=== PATIENT | male | born 1995 | race Caucasian/White ===

== ENCOUNTER 2018-08-18 12:29 | Emergency (ER) | payer BC, OTHER ==
[2018-08-18 14:22] LABS: Amphetamine Screen,Urine Not Detected (NotDetected); Barbiturate Screen,Urine Not Detected (NotDetected); Benzodiazepines Screen,Urine Not Detected (NotDetected); Cocaine Screen,Urine Not Detected (NotDetected); Methadone Screen, Urine Not Detected (NotDetected); Opiate Screen,Urine Not Detected (NotDetected); Oxycodone Screen, Urine Not Detected (NotDetected); Phencyclidine Screen,Urine Not Detected (NotDetected); Tricyclic Antidepressant,Urine Not Detected (NotDetected); Urn Cannabinoid Scrn Detected (NotDetected)
--- NOTE | 2018-08-18 14:45 | ED ---
Psych HPI - General Chief Complaint: Psychiatric Symptoms Stated Complaint: EPS eval Time Seen by Provider: 08/18/18 13:42 Source: patient, RN notes reviewed, old records reviewed Mode of arrival: ambulatory - History of Present Illness Initial Comments: Patient is a 23-year-old male presents raise from stable chief complaint of manic episodes. He has been diagnosed bipolar disorder approximately 7 years ago. He reports that at that time he was on multiple medications and subsequently gained weight. Patient states that he took himself off his medications and hit his been managing his bipolar on his own. He does not see a counselor or psychiatrist. He reports his bipolar disorder is now affecting his life. Patient states that he's been having hard time holding a job as well as holding onto relationships. Patient states that he has a fluctuant moods. He reports as of lately he has been more manic. Poor sleeping. He is here with his mother and his grandmother. He denies any suicidal or homicidal ideations. - Related Data Home Medications Medication Instructions Recorded Confirmed No Known Home Medications 08/18/18 08/18/18 Allergies Allergy/AdvReac Type Severity Reaction Status Date / Time No Known Allergies Allergy Verified 08/18/18 13:59 Review of Systems ROS Statement: Those systems with pertinent positive or pertinent negative responses have been documented in the HPI. ROS Other: All systems not noted in ROS Statement are negative. Past Medical History Additional Past Medical History / Comment(s): insomnia, seasonal allergies History of Any Multi-Drug Resistant Organisms: None Reported Past Surgical History: No Surgical Hx Reported Past Psychological History: Anxiety, Bipolar Smoking Status: Current every day smoker Past Alcohol Use History: Occasional Past Drug Use History: Marijuana General Exam - General Exam Comments Initial Comments: This is a 23-year-old male. Alert and oriented. Patient appears in no acute distress. Limitations: no limitations General appearance: alert, in no apparent distress Head exam: Present: atraumatic, normocephalic, normal inspection Eye exam: Present: normal appearance ENT exam: Present: normal exam, mucous membranes moist Neck exam: Present: normal inspection. Absent: tenderness, meningismus, lymphadenopathy Respiratory exam: Present: normal lung sounds bilaterally. Absent: respiratory distress, wheezes, rales, rhonchi, stridor Cardiovascular Exam: Present: regular rate, normal rhythm, normal heart sounds. Absent: systolic murmur, diastolic murmur, rubs, gallop, clicks GI/Abdominal exam: Present: soft, normal bowel sounds. Absent: distended, tenderness, guarding, rebound, rigid Extremities exam: Present: normal inspection, full ROM, normal capillary refill. Absent: tenderness, pedal edema, joint swelling, calf tenderness Back exam: Present: normal inspection Neurological exam: Present: alert, oriented X3, CN II-XII intact Psychiatric exam: Present: normal mood, manic (Patient is manic, pacing the room.). Absent: normal affect, suicidal ideation Skin exam: Present: warm, dry, intact, normal color. Absent: rash Course Vital Signs 08/18/18 08/18/18 12:57 17:51 Temperature 99.0 F 97 F L Pulse Rate 81 54 L Respiratory 20 19 Rate Blood Pressure 160/89 147/89 O2 Sat by Pulse 99 93 L Oximetry Medical Decision Making - Medical Decision Making 4-year-old male history of bipolar disorder presents emergency murmurs a stating he has to be on medication and following up with psychiatrist. Patient had an extensive stay in the emergency department. Did show some manic tendencies. Pacing around the room. Hyperverbal. Patient this time has no suicidal ideation. Patient is very by EPS. They give the Patient outpatient referrals for [facility]. Patient will be discharged at this time will crisis unit was be following up the Patient. Patient and patient's family agree to treatment plan will comply. Return parameters were discussed. - Lab Data Lab Results 08/18/18 Range/Units 13:53 Urine Opiates Screen Not Detected (NotDetected) Ur Oxycodone Screen Not Detected (NotDetected) Urine Methadone Screen Not Detected (NotDetected) Ur Propoxyphene Screen Not Detected (NotDetected) Ur Barbiturates Screen Not Detected (NotDetected) U Tricyclic Antidepress Not Detected (NotDetected) Ur Phencyclidine Scrn Not Detected (NotDetected) Ur Amphetamines Screen Not Detected (NotDetected) U Methamphetamines Scrn Not Detected (NotDetected) U Benzodiazepines Scrn Not Detected (NotDetected) Urine Cocaine Screen Not Detected (NotDetected) U Marijuana (THC) Screen Detected H (NotDetected) Disposition Clinical Impression: Bipolar disorder Disposition: HOME SELF-CARE Condition: Good Instructions: Bipolar Disorder (ED) Additional Instructions: Patient advised to follow up with [facility] and access line. Mobile crisis unit will be following up with you tomorrow. Return to emergency department if any alarming signs or symptoms occur. Is patient prescribed a controlled substance at d/c from ED?: No Referrals: Eitan Campos MD [Primary Care Provider] - 1-2 days Time of Disposition: 17:47
[2018-08-18 17:52] VITALS: BP 147/89; PULSE 54; RESP 19; TEMP 97
== END 2018-08-18 17:52 | disposition home or self-care (01) ==
LOC: EC 12:29
DX: F31.9 Bipolar disorder, unspecified (principal); F17.200 Nicotine dependence, unspecified, uncomplicated
CPT/HCPCS: 80306; 82075; 99284

== ENCOUNTER 2019-06-03 19:01 | Emergency (ER) | payer OTHER ==
[2019-06-03] MEDS ORDERED: DIPH,PERTUS(ACELL)TETVAC-LF 0.5 ML VIAL IM ONE (19:12)
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
[2019-06-03 19:25] VITALS: RESP 16
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
[2019-06-03] MEDS ORDERED: LIDOCAINE 1%-EPI 1:100,000 20 ML VIAL SQ STA (19:48)
[2019-06-03] MEDS ORDERED: ALPRAZolam 1 MG TAB PO STA (19:55)
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
[2019-06-03 22:25] VITALS: BP 138/79; PULSE 60; TEMP 98.4
== END 2019-06-03 22:19 | disposition home or self-care (01) ==
LOC: EC 19:01
DX: S01.112A Laceration without foreign body of left eyelid and periocular area, initial encounter (principal); F17.200 Nicotine dependence, unspecified, uncomplicated; Z23 Encounter for immunization; V89.2XXA Person injured in unspecified motor-vehicle accident, traffic, initial encounter; Y92.410 Unspecified street and highway as the place of occurrence of the external cause
CPT/HCPCS: 12011; 70450; 70486; 71045; 72125; 72170; 90471; 90715; 99284

== ENCOUNTER 2019-06-07 16:15 | Emergency (ER) | payer OTHER ==
[2019-06-07 16:23] VITALS: BP 153/80; PULSE 64; RESP 18; TEMP 98.7
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
== END 2019-06-07 17:12 | disposition home or self-care (01) ==
LOC: EC 16:15
DX: S05.12XD Contusion of eyeball and orbital tissues, left eye, subsequent encounter (principal); S06.0X9D Concussion with loss of consciousness of unspecified duration, subsequent encounter; F17.200 Nicotine dependence, unspecified, uncomplicated; V49.9XXD Car occupant (driver) (passenger) injured in unspecified traffic accident, subsequent encounter
CPT/HCPCS: 99283

== ENCOUNTER 2020-04-25 02:02 | Emergency (ER) | payer OTHER ==
[2020-04-25 02:15] VITALS: BP 153/91; PULSE 59; RESP 18; TEMP 99.4
[2020-04-25] MEDS ORDERED: IBUPROFEN 600 MG STARTER PACK 4 TAB BTL PO STA (02:33)
[2020-04-25] MEDS ORDERED: IBUPROFEN 800 MG TAB PO STA (02:33)
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
--- NOTE | 2020-04-25 02:48 | XR ---
EXAMINATION TYPE: XR chest 2V DATE OF EXAM: 04/25/2020 COMPARISON: 06/03/2019 HISTORY: Chest pain TECHNIQUE: FINDINGS: Heart and mediastinum are normal. Lungs are clear. Diaphragm is normal. Bony thorax appears normal. IMPRESSION: Normal chest.
--- NOTE | 2020-04-25 02:51 | XR ---
EXAMINATION TYPE: XR forearm LT DATE OF EXAM: 04/25/2020 COMPARISON: NONE HISTORY: Left arm pain TECHNIQUE: 2 views FINDINGS: Radius and ulna appear intact. Carpal bones are intact. Elbow joint appears normal. IMPRESSION: Normal left forearm exam.
== END 2020-04-25 03:06 | disposition home or self-care (01) ==
LOC: EC 02:02
DX: S40.022A Contusion of left upper arm, initial encounter (principal); R00.2 Palpitations; F17.200 Nicotine dependence, unspecified, uncomplicated; Y04.0XXA Assault by unarmed brawl or fight, initial encounter
CPT/HCPCS: 71046; 99285

== ENCOUNTER 2022-11-07 08:54 | Emergency (ER) | payer BC, OTHER ==
--- NOTE | 2022-11-07 09:12 | ED ---
General Adult HPI - General Stated complaint: rt shoulder injury - History of Present Illness Initial comments: 27 year old male seen for advanced triage purposes: Patient states he was at the gym and injured his shoulder last night. He believes he dislocated it as he has a history of shoulder dislocation. He states someone at the gym was able to reduce it and it popped back into place. It hurts to lift his arm. - Related Data Home Medications Medication Instructions Recorded Confirmed No Known Home Medications 08/18/18 06/03/19 Allergies Allergy/AdvReac Type Severity Reaction Status Date / Time No Known Allergies Allergy Verified 11/07/22 09:10 Review of Systems ROS Statement: Those systems with pertinent positive or pertinent negative responses have been documented in the HPI. ROS Other: All systems not noted in ROS Statement are negative. Past Medical History Additional Past Medical History / Comment(s): insomnia, seasonal allergies History of Any Multi-Drug Resistant Organisms: None Reported Past Surgical History: No Surgical Hx Reported Past Psychological History: Anxiety, Bipolar Past Alcohol Use History: Occasional Past Drug Use History: Marijuana Course Vital Signs 11/07/22 09:10 Temperature 98 F Pulse Rate 81 Respiratory 16 Rate Blood Pressure 169/99 O2 Sat by Pulse 99 Oximetry Disposition Clinical Impression: History of closed shoulder dislocation Disposition: HOME SELF-CARE Condition: Good Instructions (If sedation given, give patient instructions): Shoulder Dislocation (ED) Additional Instructions: Take Motrin and tylenol for pain. Follow up with orthopedics by calling Wednesday for an appointment. Return to the ER for any worsening symptoms. Is patient prescribed a controlled substance at d/c from ED?: No Referrals: Slim Dickson MD [STAFF PHYSICIAN] - 1-2 days Time of Disposition: 09:45
[2022-11-07 09:13] VITALS: BP 169/99; PULSE 81; RESP 16; TEMP 98
--- NOTE | 2022-11-07 09:33 | XR ---
EXAMINATION TYPE: XR shoulder complete RT DATE OF EXAM: 11/07/2022 CLINICAL HISTORY: Injury with pain. TECHNIQUE: Three views of the right shoulder are obtained. COMPARISON: None. FINDINGS: There is no acute fracture/dislocation evident in the right shoulder. The acromioclavicul ar and glenohumeral joint spaces appear within normal limits. The visualized ribs are intact and unr emarkable. IMPRESSION: There is no acute fracture or dislocation in the right shoulder.
--- NOTE | 2022-11-07 09:56 | ED ---
General Adult HPI - General Chief complaint: Extremity Injury, Upper Stated complaint: rt shoulder injury Time Seen by Provider: 11/07/22 09:38 Source: patient, RN notes reviewed Mode of arrival: ambulatory Limitations: no limitations - History of Present Illness Initial comments: Patient states he was at the gym and injured his shoulder last night. He believes he dislocated it as he has a history of shoulder dislocation. He states someone at the gym was able to reduce it and it popped back into place. It hurts to lift his right arm. Patient denies any numbness or tingling in his right hand. Denies any other injuries. He is here for an [facility] referral.Patient has no other complaints at this time including shortness of breath, chest pain, abdominal pain, nausea or vomiting, headache, or visual changes. - Related Data Home Medications Medication Instructions Recorded Confirmed No Known Home Medications 08/18/18 06/03/19 Allergies Allergy/AdvReac Type Severity Reaction Status Date / Time No Known Allergies Allergy Verified 11/07/22 09:10 Review of Systems ROS Statement: Those systems with pertinent positive or pertinent negative responses have been documented in the HPI. ROS Other: All systems not noted in ROS Statement are negative. Past Medical History Additional Past Medical History / Comment(s): insomnia, seasonal allergies History of Any Multi-Drug Resistant Organisms: None Reported Past Surgical History: No Surgical Hx Reported Past Psychological History: Anxiety, Bipolar Past Alcohol Use History: Occasional Past Drug Use History: Marijuana General Exam Limitations: no limitations General appearance: alert, in no apparent distress Head exam: Present: atraumatic Eye exam: Present: normal appearance, PERRL, EOMI. Absent: scleral icterus, conjunctival injection ENT exam: Present: normal exam, mucous membranes moist Neck exam: Present: normal inspection. Absent: tenderness Respiratory exam: Present: normal lung sounds bilaterally. Absent: respiratory distress, wheezes Cardiovascular Exam: Present: regular rate, normal rhythm, normal heart sounds Extremities exam: Present: normal capillary refill (cap regfill < 2 seconds radial pulse 2+ sensation intact). Absent: full ROM (Patient able to flex and abduct right arm to 90 degrees) Neurological exam: Present: alert Course Vital Signs 11/07/22 09:10 Temperature 98 F Pulse Rate 81 Respiratory 16 Rate Blood Pressure 169/99 O2 Sat by Pulse 99 Oximetry Medical Decision Making - Medical Decision Making X-ray of the right shoulder shows no acute fracture or dislocation Was pt. sent in by a medical professional or institution ([facility], [employer], urgent care, hospital, or prison...) When possible be specific @ -[No] Did you speak to anyone other than the patient for history (EMS, parent, family, police, friend...)? What history was obtained from this source @ -[No] Did you review nursing and triage notes (agree or disagree)? Why? @ -[I reviewed and agree with nursing and triage notes] Were old charts reviewed (outside hosp., previous admission, EMS record, old EKG, old radiological studies, urgent care reports/EKG's, prison records)? Report findings @ -[No old charts were reviewed] Differential Diagnosis (chest pain, altered mental status, abdominal pain women, abdominal pain men, vaginal bleeding, weakness, fever, dyspnea, syncope, headache, dizziness, GI bleed, back pain, seizure, CVA, palpatations, mental health)? @ -[not applicable] EKG interpreted by me (3pts min.). @ -not done X-rays interpreted by me (1pt min.). @ -no fractures or dislocations actively CT interpreted by me (1pt min.). @ -[None done] U/S interpreted by me (1pt. min.). @ -[None done] What testing was considered but not performed or refused? (CT, X-rays, U/S, labs)? Why? @ -[None] What meds were considered but not given or refused? Why? @ -[None] Did you discuss the management of the patient with other professionals (professionals i.e. [facility], [employer], lab, RT, psych nurse, social studies department chair, carburetor specialist, teacher, giving officer, rn case manager hospice)? Give summary @ -yes, Dr Yeh ER physician Was smoking cessation discussed for >3mins.? @ -[No] Was critical care preformed (if so, how long)? @ -[No] Were there social determinants of health that impacted care today? How? (Homelessness, low income, unemployed, alcoholism, drug addiction, transportation, low edu. Level, literacy, decrease access to med. care, fpc, rehab)? @ -[No] Was there de-escalation of care discussed even if they declined (Discuss DNR or withdrawal of care, Hospice)? DNR status @ -[No] What co-morbidities impacted this encounter? (DM, HTN, Smoking, COPD, CAD, Cancer, CVA, ARF, Chemo, Hep., AIDS, mental health diagnosis, sleep apnea, morbid obesity)? @ -[None] Was patient admitted / discharged? Hospital course, mention meds given and route, prescriptions, significant lab abnormalities, going to OR and other pertinent info. @ - patient was given a sling and discharged home with follow up to ortho Undiagnosed new problem with uncertain prognosis? @ -[No] Drug Therapy requiring intensive monitoring for toxicity (Heparin, Nitro, I nsulin, Cardizem)? @ -[No] Were any procedures done? @ -sling applied to right arm Diagnosis/symptom? @ -right shoulder pain, history of shoulder dislocation Acute, or Chronic, or Acute on Chronic? @ -acute on chronic Uncomplicated (without systemic symptoms) or Complicated (systemic symptoms)? @ -uncomplicated Side effects of treatment? @ -[No] Exacerbation, Progression, or Severe Exacerbation? @ -[No] Poses a threat to life or bodily function? How? (Chest pain, [place], [place], pneumonia, PE, COPD, DKA, ARF, appy, cholecystitis, CVA, Diverticulitis, Homicidal, Suicidal, threat to staff... and all critical care pts) @ -[No] Disposition Clinical Impression: History of closed shoulder dislocation Disposition: HOME SELF-CARE Condition: Good Instructions (If sedation given, give patient instructions): Shoulder Dislocation (ED) Additional Instructions: Take Motrin and tylenol for pain. Follow up with orthopedics by calling Wednesday for an appointment. Return to the ER for any worsening symptoms. Is patient prescribed a controlled substance at d/c from ED?: No Referrals: Slim Dickson MD [STAFF PHYSICIAN] - 1-2 days Time of Disposition: 09:56
== END 2022-11-07 10:04 | disposition home or self-care (01) ==
LOC: EC 08:54
DX: M24.411 Recurrent dislocation, right shoulder (principal); F41.9 Anxiety disorder, unspecified; F31.9 Bipolar disorder, unspecified; F12.90 Cannabis use, unspecified, uncomplicated
CPT/HCPCS: 99283

== ENCOUNTER 2024-01-16 21:53 | Emergency (ER) | payer BC, OTHER ==
[2024-01-16 22:11] VITALS: TEMP 97.3
[2024-01-16] MEDS: KETOROLAC 15 MG/ML 1 ML VIAL IM STA (22:20)
[2024-01-16] MEDS: HYDROmorphone 1 MG/ML 1 ML SYRINGE IM STA (22:20)
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
[2024-01-16] MEDS: SODIUM CHLORIDE 0.9% 1,000 ML IV ONE (22:31)
[2024-01-16] MEDS: HYDROmorphone 1 MG/ML 1 ML SYRINGE IVP STA ×2 (22:31→23:13)
[2024-01-16] MEDS: KETOROLAC 15 MG/ML 1 ML VIAL IVP STA (22:32)
[2024-01-16] MEDS: DIPH,PERTUS(ACELL)TETVAC-LF 0.5 ML VIAL IM ONE (22:32)
[2024-01-16] MEDS: BACITRACIN ZINC 500 UNIT/GM OINT 28.4 GM TUBE TOPICAL ONE (22:34)
[2024-01-17 00:42] VITALS: BP 170/89; PULSE 71; RESP 20
== END 2024-01-17 00:03 | disposition home or self-care (01) ==
LOC: EC 21:53
DX: T25.221A Burn of second degree of right foot, initial encounter (principal); F17.290 Nicotine dependence, other tobacco product, uncomplicated; F12.90 Cannabis use, unspecified, uncomplicated; Z23 Encounter for immunization; X10.1XXA Contact with hot food, initial encounter
CPT/HCPCS: 16020; 99283; 96374; 96375; 96376; 96361; 90471; 90715; J1170; J1885